=== PATIENT | male | born 1960 | race Caucasian/White ===

== ENCOUNTER 2023-07-24 05:40 | Day surgery (SDC) | payer OTHER ==
[~2023-07-24] VITALS: Ht 180.3 cm; Wt 74.7 kg
[2023-07-24] MEDS ORDERED: BAYER BACK AND BODY PO (06:17)
[2023-07-24 06:18] VITALS: BP 126/79; PULSE 65; TEMP 97.5
[2023-07-24] MEDS ORDERED: NORCO 325 MG-51 TAB PO (09:03)
[2023-07-24 09:35] VITALS: BP 126/69; PULSE 62; TEMP 97.2
[2023-07-24 09:50] VITALS: BP 122/67; PULSE 64
[2023-07-24 10:05] VITALS: BP 124/69; PULSE 63
[2023-07-24 10:20] VITALS: BP 122/69; PULSE 63
--- NOTE | 2023-07-24 10:33 | NUR ---
0935-REPORT OBTAINED FROM TELMA LOUIS. PT BROUGHT TO [facility] VIA CART, NOTED TO BE ALERT BUT DROWSY ON ARRIVAL. REPORTS ABDOMINAL PAIN 5/10, DENIES NAUSEA. VITAL SIGNS TAKEN, VSS.. X3 LAP SITES CDI. PT OFFERED PO INTAKE AT THIS TIME 0950-PT TOLERATING PO INTAKE. VSS 1000-PT REPORTS PAIN LEVEL 5/10, PRN PAIN MEDICATION GIVEN. 1024-PT'S RIDE HOME NOTIFIED AND UPDATE GIVEN. 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 PT RESTING QUIETLY AT THIS TIME, VSS. DENIES FURTHER COMPLAINTS.
[2023-07-24 10:35] VITALS: BP 124/64; PULSE 72
--- NOTE | 2023-07-24 11:12 | NUR ---
1050-PT DRESSED INDEPENDENTLY AND AMBULATED TO BATHROOM WITHOUT ASSISTANCE. 1055-DISCHARGE INSTRUCTIONS REVIEWED WITH PT, QUESTIONS INVITED. IV CATHETER DISCONTINUED. TIP INTACT AND PRESSURE BANDAGE PLACED 1105-PT DISCHARGED HOME TO [facility] VIA WHEELCHAIR, ACCOMPANIED BY FRIEND ДМИТРИЙ. ALL BELONGINGS AND DC INSTRUCTIONS SENT WITH PT
== END 2023-07-24 11:05 | disposition home or self-care (01) ==
LOC: SDCO 05:40
DX: K40.90 Unilateral inguinal hernia, without obstruction or gangrene, not specified as recurrent (principal); F17.210 Nicotine dependence, cigarettes, uncomplicated
CPT/HCPCS: C1781; J0690; J1100; J1885; J2704; J3010; J7120